=== PATIENT | female | born 1980 | race Caucasian/White ===

== ENCOUNTER 2016-06-30 08:51 | Emergency (ER) | payer OTHER ==
[2016-06-30 10:01] LABS: HEMOGLOBIN 12.9 gm/dl (12.3-15.3); RED BLOOD COUNT 4.86 M/UL (4.00-5.10); WHITE BLOOD COUNT 9.8 K/UL (4.5-11.0)
[2016-06-30 12:07] LABS: BUN/CREATININE RATIO 17 (0-10)
== END 2016-06-30 14:32 | disposition home or self-care (01) ==
LOC: ER1 08:51
PROVIDERS: Emergency Medicine
DX: N39.0 Urinary tract infection, site not specified (principal); I10 Essential (primary) hypertension; F17.200 Nicotine dependence, unspecified, uncomplicated
CPT/HCPCS: 36415; 80053; 81001; 84703; 85025; 87077; 87086; 87186; 96361; 96374; 96375; 99284; J0696; J2270; J2405; J7050

== ENCOUNTER → 2016-08-09 | Outpatient (CLI) | payer OTHER | LOC: RAD 16:11 | DX: M54.2 Cervicalgia (principal); M54.5 Low back pain; M54.6 Pain in thoracic spine; M47.896 Other spondylosis, lumbar region; M47.897 Other spondylosis, lumbosacral region | CPT/HCPCS: 72050; 72072; 72110; 73030 ==